=== PATIENT | female | born 1955 | race Hispanic/Latino ===

== ENCOUNTER 2017-05-23 12:20 | Emergency (ER) | payer OTHER ==
[2017-05-23 12:51] VITALS: BP 127/75; PULSE 72; RESP 16; TEMP 98.7; O2SAT 99
--- NOTE | 2017-05-23 13:57 | ED PDOC ---
Upper Extremity Pain/Injury Time Seen by Provider: 05/23/17 12:57 Chief Complaint (Nursing): Upper Extremity Problem/Injury Chief Complaint (Provider): Upper extremity injury History Per: Patient History/Exam Limitations: no limitations Onset/Duration Of Symptoms: Hrs (today) Current Symptoms Are (Timing): Still Present Quality: "Pain" Additional Complaint(s): Laura Gallegos is a 62 year old female, with no significant past medical history , who presents to the emergency department complaining of pain and swelling on left shoulder s/p fall onset today. Patient denies any head injury, loss of consciousness, head pain, back pain, chest pain, difficulty breathing, or any other extremity injury. No further medical complaints. PMD: Becky Han Past Medical History Reviewed: Historical Data, Nursing Documentation, Vital Signs Vital Signs: Last Vital Signs Temp 98.7 F 05/23/17 12:48 Pulse 72 05/23/17 12:48 Resp 16 05/23/17 12:48 BP 127/75 05/23/17 12:48 Pulse Ox 99 05/23/17 12:48 - Medical History PMH: No Chronic Diseases - Surgical History Surgical History: No Surg Hx - Family History Family History: States: Unknown Family Hx - Social History Ex-Smoker (has not smoked in the last 12 months): Yes Alcohol: None Drugs: Denies - Allergies Allergies/Adverse Reactions: Allergies Allergy/AdvReac Type Severity Reaction Status Date / Time No Known Allergies Allergy Verified 05/23/17 12:51 Review of Systems ROS Statement: Except As Marked, All Systems Reviewed And Found Negative Cardiovascular: Negative for: Chest Pain Respiratory: Negative for: Shortness of Breath Musculoskeletal: Positive for: Shoulder Pain (left w/ swelling). Negative for: Back Pain, Other (head injury) Neurological: Negative for: Other (LOC) Physical Exam - Physical Exam Comments: GENERAL APPEARANCE: Patient is awake, alert, oriented x 3, in no acute distress. SKIN: Warm, dry; (-) cyanosis. HEAD: (-) swelling and tenderness, with no palpable bony defect. EYES: (-) conjunctival pallor, (-) scleral icterus, (-) nystagmus. ENMT: Mucous membranes moist. Nose: (-) tenderness. No oral trauma. Pharynx clear. Airway patent: (-) stridor. Full ROM of mandible without pain. NECK: (-) tenderness, (-) stiffness, (-) lymphadenopathy. CHEST AND RESPIRATORY: (-) chest wall tenderness. Lungs: (-) rales, (-) rhonchi , (-) wheezes; breath sounds equal bilaterally. HEART AND CARDIOVASCULAR: (-) irregularity; (-) murmur, (-) gallop. ABDOMEN AND GI: Soft; (-) tenderness. BACK: (-) tenderness. EXTREMITIES: (+) deformity, (+) swelling and bruising w/ tenderness to the left clavicle, (-) edema, (-) ecchymosis, (+) able to abduct left shoulder joint, distal pulses 2+ and sensation intact. NEURO AND PSYCH: GCS=15. Mental status as above. Has full memory of episode; dock hand : Pupils equal & reactive . EOMI. (-) facial asymmetry. Tongue and uvula midline. Strength 5/5 in all extremities. No gross sensory deficits. DTRs symmetric. - ECG O2 Sat by Pulse Oximetry: 99 (RA) Pulse Ox Interpretation: Normal Medical Decision Making Medical Decision Making: Initial Impression: Clavicular fracture Initial Plan: --Clavicle left [RAD] --Shoulder left [RAD] --reevaluation 13:50 --Shoulder X-Ray show no fracture. --Clavicle X-Ray show displaced fracture of mid clavicle. --Case d/w Dr. Cabrera, ortho risk control consultant, who recommends shoulder immobilizer and outpatient follow up on his office. --Diagnosis of clavicular fracture discussed with patient in great detail. Shoulder immobilizer put in place. 14:10 Advised to follow up with orthopedist without fail. Return to the emergency room at any time for any new or worsening symptoms. Patient states she fully agrees with and understands discharge instructions. States that she agrees with the plan and disposition. Verbalized and repeated discharge instructions and plan. I have given the patient opportunity to ask any additional questions. ~ Scribe Attestation: Documented by Rey De La Fuente, acting as a scribe for Temi Azevedo PA-C. Provider Scribe Attestation: All medical record entries made by the Scribe were at my direction and personally dictated by me. I have reviewed the chart and agree that the record accurately reflects my personal performance of the history, physical exam, medical decision making, and the department course for this patient. I have also personally directed, reviewed, and agree with the discharge instructions and disposition. Disposition - Clinical Impression Clinical Impression: Clavicle fracture - Patient ED Disposition Is Patient to be Admitted: No Counseled Patient/Family Regarding: Studies Performed, Diagnosis, Need For Followup - Disposition Referrals: Tea Cabrera MD [Staff Provider] - Disposition: Routine/Home Disposition Time: 13:45 Condition: STABLE Additional Instructions: Thank you for letting us take care of you today. You were treated for L clavicle fracture. The emergency medical care you received today was directed at your acute symptoms. Return to the Emergency Department if your symptoms worsen, do not improve, or if you have any other problems. Please contact one of the physicians/clinics you have been referred to that are listed on the Patient Visit Information form that is included in your discharge packet. Bring any paperwork you were given at discharge with you along with any medications you are taking to your follow up visit. Our treatment cannot replace ongoing medical care by a primary care provider (PCP) outside of the emergency department. Thank you for allowing the [facility] team to be part of your care today. If you had an X-Ray : A Radiologist will review the ED reading if any change in treatment is needed we will contact you. Instructions: Clavicle Fracture (ED) Forms: [employer] ([place]), [facility] ED School/Work Excuse - PA / [employer] / Resident Statement /DO has reviewed & agrees with the documentation as recorded.
--- NOTE | 2017-05-23 14:30 | RAD ---
PROCEDURE: Radiographs of the left clavicle. HISTORY: trauma COMPARISON: No prior study available for comparison however correlation made with chest radiograph 01/22/2008 which also partially imaged the left clavicle. FINDINGS: LEFT CLAVICLE: There is an oblique/diagonal fracture traversing midshaft left clavicle overlapping fragments. The distal aspect proximal fragment slightly displaced superiorly. . JOINTS: Left acromioclavicular and glenohumeral joints are grossly unremarkable. SOFT TISSUES: Grossly unremarkable. OTHER FINDINGS: None. IMPRESSION: Oblique/diagonal fracture traversing midshaft left clavicle with overlapping fragments. Distal aspect proximal fragment slightly displaced superiorly
--- NOTE | 2017-05-23 14:32 | RAD ---
PROCEDURE: Radiographs of the Left Shoulder HISTORY: trauma COMPARISON: Correlation made with concurrent radiographs of the left clavicle. FINDINGS: BONES: Oblique/diagonal fracture traversing midshaft left clavicle with overlapping fragments. Distal aspect proximal fragment slightly displaced superiorly. Left humeral head is appropriately located. 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 SOFT TISSUES: Normal. OTHER FINDINGS: None. IMPRESSION: Oblique/diagonal fracture traversing midshaft left clavicle with overlapping fragments. Distal aspect proximal fragment slightly displaced superiorly
== END 2017-05-23 14:21 | disposition home or self-care (01) ==
LOC: H.ER 12:20
DX: S42.022A Displaced fracture of shaft of left clavicle, initial encounter for closed fracture (principal); W19.XXXA Unspecified fall, initial encounter; Y92.89 Other specified places as the place of occurrence of the external cause